=== PATIENT | female | born 1995 | race African-American/Black ===

== ENCOUNTER 2018-02-02 18:39 | Emergency (ER) | payer MEDICARE, OTHER ==
--- NOTE | 2018-02-02 18:53 | ED Physician Documentation ---
General Adult - HISTORIAN Historian: patient - HPI Stated Complaint: self cutting Chief Complaint: General Adult Onset: other ("forever" ) Timing: still present Severity: mild Further Comments: yes (She states she does self harm by cutting she is not sucidial. NO other complaints.) Last known Well Code/Unknown Code: Unknown - ROS CONST: no problems - PAST HX Past History: other (depression) Surgeries/Procedures: none Immunizations: UTD Allergies/Adverse Reactions: Allergies Allergy/AdvReac Type Severity Reaction Status Date / Time No Known Allergies Allergy Verified 02/02/18 19:14 Home Medications: Ambulatory Orders Medication Instructions Recorded Cetirizine HCl [Zyrtec] 10 mg PO DAILY 10/04/17 Lamotrigine [Lamictal] 50 mg PO BID 10/04/17 Lamotrigine [Lamictal] 150 mg PO HS 10/04/17 [place] Carbonate [[place] 450 mg PO HS 10/04/17 Carbonate ER] [place] Carbonate [Lithobid] 300 mg PO DAILY 10/04/17 Sertraline HCl [Zoloft] 200 mg PO DAILY 10/04/17 - SOCIAL HX Smoking History: non-smoker Alcohol Use: none Drug Use: none - FAMILY HX Family History: No - VITAL SIGNS Vital Signs: Vital Signs Temp Pulse Resp BP Pulse Ox 126/74 10/04/17 22:35 - REVIEWED ASSESSMENTS Nursing Assessment Reviewed: Yes Vitals Reviewed: Yes General Adult Physical Exam - PHYSICAL EXAM GENERAL APPEARANCE: no distress EENT: eye inspection normal, ENT inspection normal NECK: normal inspection RESPIRATORY: no resp distress, chest non-tender, breath sounds normal CVS: reg rate & rhythm, heart sounds normal ABDOMEN: soft, normal bowel sounds BACK: normal inspection SKIN: other (superficial cuts on bilateral forerams and abdomen ) EXTREMITIES: non-tender, normal range of motion, no evidence of injury, no edema NEURO: oriented X3, CN's nml as tested, motor nml, sensation nml, mood/affect nml Discharge Clincal Impression: Deliberate self-cutting Referrals: Primary Doctor,No [Primary Care Provider] - 2 Days Additional Instructions: 1. Keep area clean and dry 2. Apply Triple antibiotic ointment 3. Watch for increasing redness or warmth 4. Follow up with PCP in 2 days 5 . Return to ER or call 911 for any suicidal thoughts Condition: Stable Disposition: 01 HOME, SELF-CARE Decision to Admit: NO Date of Decison to Admit: 02/02/18 Decision Time: 19:22
[2018-02-02] MEDS ORDERED: TRIPLE ANTIBIOTIC OINTMENT PAC 1 PACKET TOP ONE (19:21)
[2018-02-02 19:30] VITALS: BP 114/68
== END 2018-02-02 19:28 | disposition home or self-care (01) ==
LOC: ED 18:39
DX: S51.811A Laceration without foreign body of right forearm, initial encounter (principal); X78.9XXA Intentional self-harm by unspecified sharp object, initial encounter; S31.119A Laceration without foreign body of abdominal wall, unspecified quadrant without penetration into peritoneal cavity, initial encounter; S51.812A Laceration without foreign body of left forearm, initial encounter
CPT/HCPCS: 99282

== ENCOUNTER 2019-10-15 21:31 | Emergency (ER) | payer MEDICARE, OTHER ==
[2019-10-15] MEDS ORDERED: ACETAMINOPHEN 325 MG TABLET ONE (21:43)
[2019-10-15] MEDS ORDERED: ACETAMINOPHEN 325 MG TABLET PO ONE (21:47)
--- NOTE | 2019-10-15 21:48 | ED Physician Documentation ---
Head Injury - HISTORIAN Historian: patient - HPI Chief Complaint: Fall Additional Information: 24 year old female from the [facility] home stated that she fell and hit the right frontal lobe on the carpeted floor. No LOC- pt c/o headache, no visual disturbances. Staff brought patient out for evaluation. Patient is alert and oriented x 4; no memory loss. Onset: just prior to arrival Where: home Timing: better Context: fall Severity: mild Loss of Consciousness: no loss of consciousness - ROS CONST: headache (mild) CVS/RESP: none EYES/ENT: none MS/SKIN/LYMPH: denies: neck pain GI/: denies: nausea, vomiting - PAST HX Past History: other (depression, mood disorder) Immunizations: UTD Allergies/Adverse Reactions: Allergies Allergy/AdvReac Type Severity Reaction Status Date / Time No Known Allergies Allergy Verified 02/02/18 19:14 Home Medications: Ambulatory Orders Medication Instructions Recorded Cetirizine HCl [Zyrtec] 10 mg PO DAILY 10/04/17 Lamotrigine [Lamictal] 50 mg PO BID 10/04/17 Lamotrigine [Lamictal] 150 mg PO HS 10/04/17 [place] Carbonate [[place] 450 mg PO HS 10/04/17 Carbonate ER] [place] Carbonate [Lithobid] 300 mg PO DAILY 10/04/17 Sertraline HCl [Zoloft] 200 mg PO DAILY 10/04/17 - SOCIAL HX Smoking History: non-smoker Alcohol Use: none Drug Use: none - FAMILY HX Family History: none - VITAL SIGNS Vital Signs: Vital Signs Temp Pulse Resp BP Pulse Ox 114/68 02/02/18 19:28 - REVIEWED ASSESSMENTS Nursing Assessment Reviewed: Yes Vitals Reviewed: Yes ED Results Lab/Radiology - Orders Orders: ED Orders Category Date Time Status Acetaminophen [Tylenol] Med 10/15/19 21:43 Discontinued 650 mg .ROUTE .STK-MED ONE Acetaminophen [Tylenol] Med 10/15/19 21:47 Discontinued 650 mg PO NOW ONE Head Injury Physical Exam - Physical Exam General Appearance: no acute distress, alert Head: non-tender, no swelling Neck: non-tender, painless ROM Eyes: CARMEN, EOMI, lids & conjunct. nml ENT: nml external inspection, pharynx nml Neuro: alert, oriented x3, cooperative, mood/affect nml Sensorimotor: motor nml, sensation nml Resp/CVS: breath sounds nml, heart sounds nml Abdomen: non-tender, nml bowel sounds Back: non-tender, painless ROM Skin: warm/dry, normal color Extremities: nml ROM, gait nml - Frida Coma Score Coma Scale Eye Opening: Spontaneous Coma Scale Verbal: Oriented Coma Scale Motor: Obeys Commands Discharge Clincal Impression: Minor head injury without loss of consciousness Referrals: Primary Doctor,No [Primary Care Provider] - 2 Days Additional Instructions: Alternate Tylenol and Ibuprofen as needed for headache Lay down in a dark and quiet room No stimulation for 24 hours such as; TV, electronics, Cell phone, etc.. Follow up with PCP next week for re-evaluation Condition: Good Disposition: 01 HOME, SELF-CARE Decision to Admit: NO Decision Time: 22:08
[2019-10-15 22:13] VITALS: BP 149/89
== END 2019-10-15 22:00 | disposition home or self-care (01) ==
LOC: ED 21:31
DX: S09.90XA Unspecified injury of head, initial encounter (principal); W18.09XA Striking against other object with subsequent fall, initial encounter; Y92.009 Unspecified place in unspecified non-institutional (private) residence as the place of occurrence of the external cause
CPT/HCPCS: 99282; 99283